=== PATIENT | female | born 1935 | race Caucasian/White ===

== ENCOUNTER → 2017-05-08 12:22 | Outpatient (CLI) | payer MEDICARE | END | disposition home or self-care (01) | LOC: D.RAD 12:22 | DX: J06.0 Acute laryngopharyngitis (principal) ==

== ENCOUNTER → 2017-11-01 06:39 | Outpatient (CLI) | payer MEDICARE ==
[2017-11-03 14:09] LABS: IMMUNOGLOBULIN A 116 mg/dL (64-422); IMMUNOGLOBULIN G 1128 mg/dL (700-1600)
[2017-11-07 11:22] LABS: IMMUNOGLOBULIN E 8 IU/mL (0-100)
== END | disposition home or self-care (01) ==
LOC: D.RT 06:39
PROVIDERS: Internal Medicine Pulmonary Disease
DX: J44.9 Chronic obstructive pulmonary disease, unspecified (principal)

== ENCOUNTER 2018-03-03 18:03 | Emergency (ER) | payer MEDICARE ==
[~2018-03-03] VITALS: Ht 177.8 cm; Wt 36.7 kg
[2018-03-03 18:05] VITALS: Ht 177.8 cm; Wt 36.7 kg
[2018-03-03 19:30] LABS: BASOPHILS 0.2 % (0-2); HEMATOCRIT 34.5 % (36.0-48.0); HEMOGLOBIN 11.5 g/dL (12-16); IMMATURE GRANULOCYTES 0.1 % (0-5); LYMPHOCYTES 15.9 % (15-50); MCH 26.9 pg (26.0-34.0); MCHC 33.3 g/dL (31.0-37.0); MCV 80.8 fL (80.0-100.0); MEAN PLATELET VOLUME 11.1 fL (7.4-10.4); MONOCYTES 5.9 % (2-11); NEUTROPHILS 76.9 % (40-80); PLATELET COUNT 249 10x3/uL (130-400); RBC 4.27 10x6/uL (4.00-5.40); RDW 14.2 % (11.5-14.5); WBC 10.8 10x3/uL (4.8-10.8)
[2018-03-03 20:06] LABS: ALBUMIN 2.9 g/dL (3.4-5.0); ALKALINE PHOSPHATASE 86 U/L (46-116); ALT (SGPT) 12 U/L (10-68); BILIRUBIN - TOTAL 0.28 mg/dL (0.2-1.3); CALC OSMOLALITY 270 mosm/kg (275-300); CALCIUM 8.2 mg/dL (8.5-10.1); CARBON DIOXIDE 29.7 mmol/L (21.0-32.0); CHLORIDE - SERUM 100 mmol/L (98-107); CREATININE - SERUM 0.8 mg/dL (0.6-1.3); GLUCOSE 105 mg/dL (74-106); PROTEIN - SERUM 6.8 g/dL (6.4-8.2); SODIUM 136 mmol/L (136-145); UREA NITROGEN 11 mg/dL (7-18); eGFR NON AFRICAN AMERICAN 73 mL/min (90-120)
[2018-03-03 20:10] LABS: TROPONIN-I < 0.017 ng/mL (0.000-0.060)
[2018-03-03 20:11] LABS: POTASSIUM - SERUM 2.9 mmol/L (3.5-5.1)
[2018-03-03] MEDS ORDERED: VIBRAMYCIN 100100 MG PO (20:22)
[2018-03-03 21:45] VITALS: BP 157/84
== END 2018-03-03 21:45 | disposition home or self-care (01) ==
LOC: D.ER 18:03
PROVIDERS: Family Medicine
DX: J44.1 Chronic obstructive pulmonary disease with (acute) exacerbation (principal); E87.6 Hypokalemia; R09.89 Other specified symptoms and signs involving the circulatory and respiratory systems; I10 Essential (primary) hypertension; F17.200 Nicotine dependence, unspecified, uncomplicated